=== PATIENT | female | born 1990 | race Two or more races ===

== ENCOUNTER → 2021-02-18 | Outpatient (CLI) | payer BC ==
[2021-02-18 11:27] LABS: CLARITY URINE CLEAR (CLEAR); COLOR URINE YELLOW (YELLOW); KETONES URINE NEGATIVE (NEGATIVE); LEUKOCYTE ESTERASE URINE NEGATIVE (NEGATIVE); NITRITE URINE NEGATIVE (NEGATIVE); OCCULT BLOOD URINE TRACE (NEGATIVE); PROTEIN URINE NEGATIVE (NEGATIVE); SPECIFIC GRAVITY URINE 1.021 (1.005-1.030); UROBILINOGEN URINE 0.2 E.U./dL (0.2-1.0)
[2021-02-18 11:28] LABS: BASOPHILS % 0.6 % (0.0-2.0); EOSINOPHILS % 10.3 % (0.0-5.0); HEMATOCRIT. 42.7 % (36.0-48.0); HEMOGLOBIN. 14.5 g/dL (12.0-16.0); LYMPHOCYTES % 24.8 % (20.0-50.0); MEAN CORPUSCULAR HEMOGLOBIN 28.8 pg (28.0-32.0); MEAN CORPUSCULAR VOLUME 84.6 fL (81.0-99.0); MEAN PLATELET VOLUME 8.3 fl (7.4-10.4); MONOCYTES % 5.2 % (2.0-8.0); NEUTROPHILS % 59.1 % (40.0-76.0); PLATELET 301 x1000/uL (130-400); RED BLOOD CELL COUNT 5.05 mill/uL (4.2-5.4)
[2021-02-18 11:42] LABS: CHLORIDE 106 mEq/L (98-107)
[2021-02-18 11:49] LABS: LDL CHOLESTEROL 134 mg/dL (5-100)
[2021-02-18 11:50] LABS: HDL CHOLESTEROL 112 mg/dL (40-59)
== END | disposition home or self-care (01) ==
LOC: LAB 10:54
PROVIDERS: ATTEND Internal Medicine Nephrology
DX: J45.909 Unspecified asthma, uncomplicated (principal)
CPT/HCPCS: 36415; 80048; 80061; 81003; 84443; 85025

== ENCOUNTER → 2021-09-20 | Outpatient (CLI) | payer BC | END | disposition home or self-care (01) | LOC: CT 10:40 | PROVIDERS: ATTEND Otolaryngology Otolaryngology/Facial Plastic Surgery | DX: J33.8 Other polyp of sinus (principal); J34.89 Other specified disorders of nose and nasal sinuses; J34.81 Nasal mucositis (ulcerative); M79.89 Other specified soft tissue disorders | CPT/HCPCS: 70486 ==

== ENCOUNTER 2021-12-13 13:47 | Emergency (ER) | payer BC ==
[~2021-12-13] VITALS: Ht 167.6 cm; Wt 61.0 kg
[2021-12-13 13:52] VITALS: BP 128/81
[2021-12-13 14:27] LABS: CLARITY URINE CLOUDY (CLEAR); COLOR URINE YELLOW (YELLOW); KETONES URINE TRACE (NEGATIVE); LEUKOCYTE ESTERASE URINE 2+ (NEGATIVE); NITRITE URINE NEGATIVE (NEGATIVE); OCCULT BLOOD URINE 2+ (NEGATIVE); PH URINE 5.5 (4.5-8.0); PROTEIN URINE TRACE (NEGATIVE); SPECIFIC GRAVITY URINE 1.028 (1.005-1.030); UROBILINOGEN URINE 0.2 E.U./dL (0.2-1.0)
[2021-12-13] MEDS ORDERED: PHENAZOPYRIDINE HCL 100MG TABLET PO ONE (14:30)
[2021-12-13] MEDS ORDERED: NITROFURANTOIN 100MG M/M CAPSULE PO NR (14:53)
[2021-12-13] MEDS ORDERED: NITR100C PO (14:53)
== END 2021-12-13 15:40 | disposition home or self-care (01) ==
LOC: ER 13:47
DX: N39.0 Urinary tract infection, site not specified (principal)
CPT/HCPCS: 81003; 87077; 87186; 99283

== ENCOUNTER → 2022-02-23 | Outpatient (CLI) | payer BC ==
[~2022-02-23] MED LIST: NITR100C PO
[2022-02-23 12:35] LABS: CLARITY URINE CLEAR (CLEAR); COLOR URINE YELLOW (YELLOW); KETONES URINE NEGATIVE (NEGATIVE); LEUKOCYTE ESTERASE URINE NEGATIVE (NEGATIVE); NITRITE URINE NEGATIVE (NEGATIVE); OCCULT BLOOD URINE NEGATIVE (NEGATIVE); PROTEIN URINE NEGATIVE (NEGATIVE); SPECIFIC GRAVITY URINE 1.007 (1.005-1.030); UROBILINOGEN URINE 0.2 E.U./dL (0.2-1.0)
[2022-02-23 12:47] LABS: BASOPHILS % 0.6 % (0.0-2.0); EOSINOPHILS % 8.7 % (0.0-5.0); HEMATOCRIT. 42.6 % (36.0-48.0); HEMOGLOBIN. 14.1 g/dL (12.0-16.0); LYMPHOCYTES % 29.5 % (20.0-50.0); MEAN CORPUSCULAR HEMOGLOBIN 28.3 pg (28.0-32.0); MEAN CORPUSCULAR VOLUME 85.7 fL (81.0-99.0); MEAN PLATELET VOLUME 8.6 fl (7.4-10.4); MONOCYTES % 6.9 % (2.0-8.0); NEUTROPHILS % 54.3 % (40.0-76.0); PLATELET 310 x1000/uL (130-400); RED BLOOD CELL COUNT 4.97 mill/uL (4.2-5.4); RED CELL DISTRIBUTION WIDTH 13.4 % (11.6-14.6)
[2022-02-23 12:56] LABS: CHLORIDE 106 mEq/L (98-107)
[2022-02-23 12:58] LABS: INR 0.9; PARTIAL THROMBOPLASTIN TIME 27.8 sec (23.4-31.0); PROTHROMBIN TIME 10.1 sec (9.6-11.0)
== END | disposition home or self-care (01) ==
LOC: LAB 11:56
PROVIDERS: ATTEND Internal Medicine Nephrology
DX: Z01.818 Encounter for other preprocedural examination (principal); I30.9 Acute pericarditis, unspecified
CPT/HCPCS: 36415; 71045; 80053; 81003; 85025; 86003; 86005

== ENCOUNTER → 2022-07-11 | Outpatient (CLI) | payer BC ==
[2022-07-11 12:13] LABS: BASOPHILS % 0.5 % (0.0-2.0); EOSINOPHILS % 8.6 % (0.0-5.0); HEMATOCRIT. 42.5 % (36.0-48.0); HEMOGLOBIN. 14.2 g/dL (12.0-16.0); LYMPHOCYTES % 32.9 % (20.0-50.0); MEAN CORPUSCULAR HEMOGLOBIN 28.6 pg (28.0-32.0); MEAN CORPUSCULAR VOLUME 85.6 fL (81.0-99.0); MEAN PLATELET VOLUME 8.3 fl (7.4-10.4); MONOCYTES % 6.8 % (2.0-8.0); NEUTROPHILS % 51.2 % (40.0-76.0); PLATELET 282 x1000/uL (130-400); RED BLOOD CELL COUNT 4.96 mill/uL (4.2-5.4); RED CELL DISTRIBUTION WIDTH 14.4 % (11.6-14.6)
[2022-07-12 05:10] LABS: PROLACTIN 12.4 ng/mL (4.8-23.3)
== END | disposition home or self-care (01) ==
LOC: LAB 11:38
PROVIDERS: ATTEND Obstetrics & Gynecology Obstetrics
DX: Z13.1 Encounter for screening for diabetes mellitus (principal); Z13.29 Encounter for screening for other suspected endocrine disorder
CPT/HCPCS: 36415; 83036; 84144; 84146; 84443; 85025

== ENCOUNTER → 2023-06-18 | Outpatient (CLI) | payer BC | END | disposition home or self-care (01) | LOC: LAB 11:41 | PROVIDERS: ATTEND Obstetrics & Gynecology Obstetrics | DX: Z13.1 Encounter for screening for diabetes mellitus (principal) | CPT/HCPCS: 36415; 82950; 82962 ==